=== PATIENT | male | born 1965 | race African-American/Black ===

== ENCOUNTER 2018-02-04 14:36 | Emergency (ER) | payer SELFPAY ==
[2018-02-04] MEDS: FAMOTIDINE 20 MG TABLET. PO (14:59)
[2018-02-04] MEDS: diphenhydrAMINE HCL 25 MG CAPSULE PO (14:59)
[2018-02-04] MEDS: methylPREDNISolone SOD SUCC PF 125 MG/2 ML VIAL. IM (15:00)
== END 2018-02-04 15:09 | disposition home or self-care (01) ==
LOC: ER 14:36
DX: T63.461A Toxic effect of venom of wasps, accidental (unintentional), initial encounter (principal); T78.3XXA Angioneurotic edema, initial encounter; E78.00 Pure hypercholesterolemia, unspecified; I10 Essential (primary) hypertension; Z86.73 Personal history of transient ischemic attack (TIA), and cerebral infarction without residual deficits; Y92.89 Other specified places as the place of occurrence of the external cause
CPT/HCPCS: 96372; 99283; J2930; Q0163